=== PATIENT | female | born 1930 | race Caucasian/White ===

== ENCOUNTER 2016-09-09 17:41 | Inpatient (IN) | payer MEDICARE ==
[~2016-09-09] VITALS: Ht 147.3 cm; Wt 40.1 kg
[2016-09-09] VITALS (7 sets, daily range): BP systolic 91–154; BP diastolic 51–82; PULSE 105–112; RESP 18–22; TEMP 98–99.7; O2SAT 88–100
[~2016-09-09 17:41] MED LIST: ALBU17I INH; ASAC800T PO; AZAT50 PO; COZA50TA PO; CYAN1000P IM; DICY20TA10 PO; DONE5TAB14 PO; ESCI5TAB PO; FLUT1SPR9; FURO20 PO; LORA-392 PO; METO25 PO; NAME5TAB2 PO; NYST100024 TOP; POTA20IN3 PO; SPIRCAP INH
[2016-09-09] MEDS ORDERED: methylPREDNISolone SOD SUCC 125 MG/2 ML VIAL IVP ONE (18:15)
[2016-09-09] MEDS ORDERED: SODIUM CHLORIDE 0.9% FLUSH 5 ML FLUSH IVF PRN (18:15)
[2016-09-09] MEDS: RESP: ALBUTEROL 2.5 MG/IPRATROPIUM 0.5 MG NEB (SCH) INH ×2 (18:20→18:21)
[2016-09-09] MEDS ORDERED: FURO1TAB62 PO ×2 (18:37)
[2016-09-09] MEDS ORDERED: FLUT1INH INH (18:37)
[2016-09-09] MEDS ORDERED: CYAN1000P SQ (18:37)
[2016-09-09] MEDS ORDERED: METO50TA PO (18:37)
[2016-09-09] MEDS ORDERED: ARIC5TAB PO (18:37)
[2016-09-09] MEDS ORDERED: ASAC800T PO (18:37)
[2016-09-09] MEDS ORDERED: IMUR50TA PO (18:37)
[2016-09-09] MEDS ORDERED: LORA-373 PO (18:37)
[2016-09-09] MEDS ORDERED: POTA-163 PO (18:37)
[2016-09-09] MEDS ORDERED: LOSA100T PO (18:37)
[2016-09-09] MEDS ORDERED: LEXA5TAB PO (18:37)
[2016-09-09] MEDS ORDERED: NAME10TA PO (18:37)
[2016-09-09] MEDS ORDERED: AZITHROMYCIN INJ 500 MG in SODIUM CHLOR 0.9% 250 ML INJ 250 ML IV ONE (18:45)
[2016-09-09] MEDS ORDERED: cefTRIAXone INJ 1,000 MG in SODIUM CHLORIDE 0.9% INJ 100 ML IV ONE (18:45)
--- NOTE | 2016-09-09 18:50 | PD ---
HPI Chief Complaint: Respiratory Symptoms Time Seen by Provider: 18:02 Travel History International Travel<30 days: No Contact w/Intl Traveler<30days: No Traveled to known affect area: No History of Present Illness HPI This is an 86-year-old female with a history of CHF and COPD who presents to the emergency department with increasing shortness of breath and congestion that 's been going on for several days. Her daughter has noted that she's been having more noisy respirations and when she went over the house today she found green sputum pooled by her mouth. She says that her caregiver has noted she's been more weak over the past 2 days. She has had a fever to 100. She doesn't a history of COPD but she's not been taking any nebulizers. She has a history of CHF and takes Lasix. The daughter says she takes 20 in the morning and 10 at night. The patient is cared for mostly by caregivers and also by family that help out and check on her. She is able to ambulate with assistance. PFSH Past Medical History Hx Anticoagulant Therapy: No Arthritis: Yes Cancer: Yes (SKIN) Cardiovascular Problems: Yes (htn on meds) Chemotherapy: No Diabetes: No Diminished Hearing: Yes ([place]) Gastrointestinal Disorders: Yes (CROHN'S DISEASE) Hypertension: Yes Musculoskeletal: Yes (OSTEOPOROSIS) Respiratory: Yes (copd) ?: Not Menopausal: Yes Past Surgical History Hysterectomy: No Social History Alcohol Use: No Tobacco Use: No Substance Use: No Allergies-Medications (Allergen,Severity, Reaction): Coded Allergies: Sulfa (Verified Allergy, Unknown, Rash, 09/09/16) Reported Meds & Prescriptions Reported Meds & Active Scripts Active Reported Breo Ellipta Inh (Fluticasone/Vilanterol) 100-25 Mcg/Act Inh 1 Puff INH DAILY Use daily at the same time. Asacol HD (Mesalamine) 800 Mg Tab 800 Mg PO TID Swallow whole. Take on an empty stomach. Potassium Chloride ER (Potassium Chloride) 20 Meq Tab 20 Meq PO EVERY OTHER DAY Losartan (Losartan Potassium) 100 Mg Tab 100 Mg PO DAILY Metoprolol Tartrate 50 Mg Tab 50 Mg PO BID Lorazepam 0.5 Mg Tab 0.25 Mg PO DAILY PRN Lasix (Furosemide) 20 Mg Tab 20 Mg PO DAILY Lasix (Furosemide) 20 Mg Tab 10 Mg PO HS Lexapro (Escitalopram Oxalate) 5 Mg Tab 5 Mg PO DAILY Namenda (Memantine) 10 Mg Tab 10 Mg PO DAILY Aricept (Donepezil) 5 Mg Tab 5 Mg PO HS Cyanocobalamin Inj (Cyanocobalamin) 1,000 Mcg/Ml Inj 1,000 Mcg SQ Q30D Imuran (Azathioprine) 50 Mg Tab 50 Mg PO DAILY Hazardous agent: use appropriate precautions for handling and disposal. Review of Systems ROS Limitations: Poor Historian Physical Exam Narrative GENERAL: Frail elderly female with severe kyphosis SKIN: Some skin breakdown along the buttocks with a 1 cm sacral decubitus ulcer which is 0.25 cm deep HEAD: Atraumatic. Normocephalic. EYES: Pupils equal and round. No injection or drainage. ENT: Dry mucous membranes. NECK: Trachea midline. CARDIOVASCULAR: Regular rate and rhythm. No murmur appreciated. 2+ bilateral pitting edema. RESPIRATORY: Coarse breath sounds bilaterally.. GASTROINTESTINAL: Abdomen soft, non-tender, nondistended. MUSCULOSKELETAL: No obvious deformities. NEUROLOGICAL: Oriented to person and place. Somewhat confused.. No obvious cranial nerve deficits. Moving all extremities. Data Data Last Documented VS Vital Signs Date Time Temp Pulse Resp B/P Pulse Ox O2 Delivery O2 Flow Rate FiO2 09/09/16 18:26 88 Room Air 09/09/16 18:26 2 09/09/16 17:55 99.7 105 18 154/82 Orders Complete Blood Count With Diff (09/09/16 18:15) Comprehensive Metabolic Panel (09/09/16 18:15) B-Type Natriuretic Peptide (09/09/16 18:15) Act Partial Throm Time (Ptt) (09/09/16 18:15) Prothrombin Time / Inr (Pt) (09/09/16 18:15) Troponin I (09/09/16 18:15) Influenzae A/B Antigen (09/09/16 18:15) Iv Access Insert/Monitor (09/09/16 18:15) Ecg Monitoring (09/09/16 18:15) Oximetry (09/09/16 18:15) Oxygen Administration (09/09/16 18:15) Chest, Single Ap (09/09/16 18:15) Sodium Chloride 0.9% Flush (Ns Flush) (09/09/16 18:15) Methylprednisolone So Succ Inj (Solumedr (09/09/16 18:15) Albuterol-Ipratropium Neb (Duoneb Neb) (09/09/16 18:15) Blood Culture (09/09/16 18:41) Lactic Acid (09/09/16 18:41) Ceftriaxone Inj (Rocephin Inj) (09/09/16 18:45) Azithromycin Inj (Zithromax Inj) (09/09/16 18:45) MDM Medical Decision Making Medical Screen Exam Complete: Yes Emergency Medical Condition: Yes Interpretation(s) Low-grade fever, tachycardia, hypoxia Differential Diagnosis Pneumonia, viral syndrome, pulmonary embolism, congestive heart failure Narrative Course This is an 86-year-old female who presents to the emergency department with shortness of breath, fever and congestion. Here she has a low-grade fever and she was found to be hypoxic. She is placed on a monitor and an IV was established. She was given methylprednisilone as well as serial bronchodilator treatments. Labs were obtained. She does appear volume up and will likely require some Lasix. Her chest x-ray is difficult to interpret given her body habitus. I did cover the patient with ceftriaxone and azithromycin empirically and obtained blood cultures. Patient will be dispositioned by oncoming provider but she certainly requires admission. Jacinta Wayne MD Sep 09, 2016 18:50
[2016-09-09 18:57] LABS: AUTOMATED NEUTROPHIL # 12.8 TH/MM3 (1.8-7.7); BASOPHIL # 0.1 TH/MM3 (0-0.2); BASOPHIL % 0.5 % (0.0-2.0); EOSINOPHIL % 0.1 % (0.0-4.0); HEMO FLAGS DIFF FINAL; LYMPHOCYTE # 0.1 TH/MM3 (1.0-4.8); MEAN CELL VOLUME 89.1 FL (80.0-100.0); MEAN CORPUSCULAR HEMOGLOBIN 28.9 PG (27.0-34.0); MEAN CORPUSCULAR HGB CONC 32.5 % (32.0-36.0); MONO % 2.1 % (0.0-8.0); NEUT % 96.3 % (16.0-70.0); PLATELET COUNT 402 TH/MM3 (150-450); RED BLOOD COUNT 3.36 MIL/MM3 (4.00-5.30); RED CELL DISTRIBUTION WIDTH 16.2 % (11.6-17.2); WHITE BLOOD COUNT 13.3 TH/MM3 (4.0-11.0)
[2016-09-09 19:48] LABS: CHLORIDE 103 MEQ/L (98-107); POTASSIUM 4.1 MEQ/L (3.5-5.1); SODIUM (NA) 139 MEQ/L (136-145)
[2016-09-09 19:57] LABS: PROTHROMBIN TIME - PATIENT 10.8 SEC (9.8-11.6)
[2016-09-09 19:57] LABS: ALT (GPT) 12 U/L (10-53); ANION GAP 12 MEQ/L (5-15); AST (GOT) 19 U/L (15-37); BICARBONATE 24.2 MEQ/L (21.0-32.0); BLOOD UREA NITROGEN 21 MG/DL (7-18); GLOMERULAR FILTRATION RATE 58 ML/MIN (>89)
[2016-09-09 19:58] LABS: TOTAL BILIRUBIN ADULT 0.3 MG/DL (0.2-1.0)
[2016-09-09 20:00] LABS: ALKALINE PHOSPHATASE 87 U/L (45-117)
--- NOTE | 2016-09-09 20:07 | RADHPO ---
EXAM DATE/TIME: 09/09/2016 18:30 [facility] COMPARISON: No previous studies available for comparison. INDICATIONS : Short of breath. MEDICAL HISTORY : Congestive heart failure. Chronic obstructive pulmonary disease. SURGICAL HISTORY : None. ENCOUNTER: Initial ACUITY: 1 day PAIN SCORE: Non-responsive. LOCATION: Bilateral chest FINDINGS: A single view of the chest demonstrates mild basilar opacity, possibly atelectasis and scarring. Tigist ent is kyphotic. Heart is mildly enlarged. No significant effusion. CONCLUSION: 1. Basilar and dependent opacity, probably atelectasis. No significant effusion. No pneumothorax. Jerald Lozada MD on September 09, 2016 at 20:03 Board Certified Radiologist. This report was verified electronically.
[2016-09-09 21:38] LABS: BLOOD GAS CARBOXYHEMOGLOBIN 1.2 % (0-4); BLOOD GAS HCO3 23 mmol/L (22-26); BLOOD GAS METHEMOGLOBIN 2.1 % (0-2); BLOOD GAS O2 HGB SATURATION 86 % (90-100); BLOOD GAS OXYGEN CONTENT 15.3 Vol % (12.0-20.0); BLOOD GAS PCO2 34 mmHG (38-42); BLOOD GAS PO2 62 mmHG (61-120); BLOOD GAS TOTAL HGB 12.6 G/DL (12.0-16.0); TEMP CORR TO 98.6
[2016-09-09 21:39] LABS: CRITICAL VALUE YES; DRAW SITE RT RADIAL; FIO2 21 %; NUMBER OF ARTERIAL PUNCTURES 1; OXYGEN DEVICE ROOM AIR; STAT YES; ULNAR PULSE PRESENT
--- NOTE | 2016-09-09 21:48 | PD ---
Physical Exam Time Seen by Provider: 21:[address] Wayne with this patient with me to admit. She is hypoxic. Data Data Last Documented VS Vital Signs Date Time Temp Pulse Resp B/P Pulse Ox O2 Delivery O2 Flow Rate FiO2 09/09/16 21:37 96 Nasal Cannula 2 09/09/16 21:37 112 20 119/64 09/09/16 17:55 99.7 Orders Complete Blood Count With Diff (09/09/16 18:15) Comprehensive Metabolic Panel (09/09/16 18:15) B-Type Natriuretic Peptide (09/09/16 18:15) Act Partial Throm Time (Ptt) (09/09/16 18:15) Prothrombin Time / Inr (Pt) (09/09/16 18:15) Troponin I (09/09/16 18:15) Influenzae A/B Antigen (09/09/16 18:15) Iv Access Insert/Monitor (09/09/16 18:15) Ecg Monitoring (09/09/16 18:15) Oximetry (09/09/16 18:15) Oxygen Administration (09/09/16 18:15) Chest, Single Ap (09/09/16 18:15) Sodium Chloride 0.9% Flush (Ns Flush) (09/09/16 18:15) Methylprednisolone So Succ Inj (Solumedr (09/09/16 18:15) Albuterol-Ipratropium Neb (Duoneb Neb) (09/09/16 18:15) Blood Culture (09/09/16 18:41) Lactic Acid (09/09/16 18:41) Ceftriaxone Inj (Rocephin Inj) (09/09/16 18:45) Azithromycin Inj (Zithromax Inj) (09/09/16 18:45) Arterial Blood Gas (Abg) (09/09/16 21:19) Labs Laboratory Tests Test 09/09/16 09/09/16 09/09/16 18:44 19:20 21:30 White Blood Count 13.3 TH/MM3 Red Blood Count 3.36 MIL/MM3 Hemoglobin 9.7 GM/DL Hematocrit 30.0 % Mean Corpuscular Volume 89.1 FL Mean Corpuscular Hemoglobin 28.9 PG Mean Corpuscular Hemoglobin 32.5 % Concent Red Cell Distribution Width 16.2 % Platelet Count 402 TH/MM3 Mean Platelet Volume 6.9 FL Neutrophils (%) (Auto) 96.3 % Lymphocytes (%) (Auto) 1.0 % Monocytes (%) (Auto) 2.1 % Eosinophils (%) (Auto) 0.1 % Basophils (%) (Auto) 0.5 % Neutrophils # (Auto) 12.8 TH/MM3 Lymphocytes # (Auto) 0.1 TH/MM3 Monocytes # (Auto) 0.3 TH/MM3 Eosinophils # (Auto) 0.0 TH/MM3 Basophils # (Auto) 0.1 TH/MM3 CBC Comment DIFF FINAL Differential Comment Prothrombin Time 10.8 SEC Prothromb Time International 1.0 RATIO Ratio Activated Partial 23.0 SEC Thromboplast Time B-Type Natriuretic Peptide 258 PG/ML Sodium Level 139 MEQ/L Potassium Level 4.1 MEQ/L Chloride Level 103 MEQ/L Carbon Dioxide Level 24.2 MEQ/L Anion Gap 12 MEQ/L Blood Urea Nitrogen 21 MG/DL Creatinine 0.92 MG/DL Estimat Glomerular Filtration 58 ML/MIN Rate Random Glucose 167 MG/DL Lactic Acid Level 1.8 mmol/L Calcium Level 8.4 MG/DL Total Bilirubin 0.3 MG/DL Aspartate Amino Transf 19 U/L (AST/SGOT) Alanine Aminotransferase 12 U/L (ALT/SGPT) Alkaline Phosphatase 87 U/L Troponin I LESS THAN 0.02 NG/ML Total Protein 7.0 GM/DL Albumin 2.4 GM/DL Blood Gas Puncture Site RT RADIAL Blood Gas Patient Temperature 98.6 Blood Gas HCO3 23 mmol/L Blood Gas Base Excess -1.0 mmol/L Blood Gas Oxygen Saturation 86 % Arterial Blood pH 7.44 Arterial Blood Partial 34 mmHG Pressure CO2 Arterial Blood Partial 62 mmHG Pressure O2 Arterial Blood Oxygen Content 15.3 Vol % Arterial Blood 1.2 % Carboxyhemoglobin Arterial Blood Methemoglobin 2.1 % Blood Gas Hemoglobin 12.6 G/DL Oxygen Delivery Device ROOM AIR Blood Gas Inspired Oxygen 21 % [facility] Medical Record Reviewed: Yes Supervised Visit with RODNEY: Yes Interpretation(s) The chest x-ray shows basilar and dependent opacity which the radiologist thought was atelectasis. There was no pneumothorax or effusion present. The blood gases show pH 7.44, CO2 34, PO2 62 with O2 sat 86%. The CBC shows white count 13,300 with 93% neutrophils. The complete metabolic profile shows a BUN of 21, GFR 58, glucose 167 and albumin 2.4. The cardiac enzymes are normal. The BNP is 258. The lactic acid is 1.8. Differential Diagnosis Pneumonia, bronchitis, hypoxemia, pneumothoraxunlikely, pulmonary embolus unlikely, COPD with acute exacerbation, congestive heart failure Narrative Course The pneumonia is not identified on x-ray but the x-ray is very poor because of her kyphosis. She does have a fever and she does have hypoxemia. She also has a shift to the left with 96% neutrophils. A bacterial infection and strongly suggested. Impression: Bronchitis with hypoxemia and congestive heart failure. Plan: The patient will be admitted to Dr. Rjei Jordan. Physician Communication Physician Communication I discussed the patient with Dr. Reji Jordan and Dr. Wayne. Admitting Information Admitting Physician Requests: it Ger Silver MD Sep 09, 2016 21:48
[2016-09-09] MEDS ORDERED: SODIUM CHLORIDE 0.9% FLUSH 5 ML FLUSH IV FLUSH PRN (22:15)
[2016-09-09] MEDS ORDERED: guaiFENesin/DEXTROMETHORPHAN 200 MG/20 MG/10 ML CUP PO PRN (22:15)
[2016-09-09] MEDS ORDERED: DOCUSATE SODIUM 100 MG CAP PO PRN (22:15)
[2016-09-09] MEDS ORDERED: ONDANSETRON HCL 4 MG/2 ML VIAL IV PRN (22:15)
[2016-09-09] MEDS ORDERED: RESP: ALBUTEROL 2.5 MG/IPRATROPIUM 0.5 MG NEB (PRN) NEB (22:15)
[2016-09-09] MEDS: ACETAMINOPHEN 325 MG TAB PO PRN (23:35)
[2016-09-09] MEDS: DONEPEZIL HCL 5 MG TAB PO SCH (23:58)
[2016-09-10] VITALS (9 sets, daily range): BP systolic 90–154; BP diastolic 47–76; PULSE 80–104; RESP 16–18; TEMP 97.3–99; O2SAT 95–98
[2016-09-10 06:30] LABS: POTASSIUM 4.7 MEQ/L (3.5-5.1)
[2016-09-10 06:34] LABS: BICARBONATE 24.5 MEQ/L (21.0-32.0)
[2016-09-10] MEDS: RESP: ALBUTEROL 2.5 MG/IPRATROPIUM 0.5 MG NEB (SCH) INH ×3 (07:17→19:50)
[2016-09-10 08:24] LABS: AUTOMATED NEUTROPHIL # 16.3 TH/MM3 (1.8-7.7); BASOPHIL % 0.1 % (0.0-2.0); HEMATOCRIT 30.4 % (35.0-46.0); LYMPH % 1.6 % (9.0-44.0); LYMPHOCYTE # 0.3 TH/MM3 (1.0-4.8); MEAN CELL VOLUME 90.5 FL (80.0-100.0); MEAN CORPUSCULAR HEMOGLOBIN 29.4 PG (27.0-34.0); MEAN CORPUSCULAR HGB CONC 32.4 % (32.0-36.0); MONO % 2.4 % (0.0-8.0); NEUT % 95.9 % (16.0-70.0); PLATELET COUNT 391 TH/MM3 (150-450); RED BLOOD COUNT 3.36 MIL/MM3 (4.00-5.30); RED CELL DISTRIBUTION WIDTH 15.9 % (11.6-17.2)
[2016-09-10 08:28] LABS: HEMO FLAGS DIFF FINAL
[2016-09-10] MEDS: azaTHIOprine 50 MG TAB PO SCH (09:13)
[2016-09-10] MEDS: METOPROLOL TARTRATE 50 MG TAB PO SCH ×2 (09:13→21:20)
[2016-09-10] MEDS: FLUTICASONE 100 MCG/VILANTEROL 25 MCG INHALER INH SCH (09:13)
[2016-09-10] MEDS: ESCITALOPRAM OXALATE 10 MG TAB PO SCH (09:14)
[2016-09-10] MEDS: LOSARTAN 50 MG TAB PO SCH (09:14)
[2016-09-10] MEDS: MEMANTINE HCL 10 MG TAB PO SCH (09:14)
[2016-09-10] MEDS: FUROSEMIDE 20 MG TAB PO SCH (09:14)
[2016-09-10] MEDS: SODIUM CHLORIDE 0.9% FLUSH 5 ML FLUSH IV FLUSH SCH ×2 (09:14→21:03)
[2016-09-10] MEDS: MESALAMINE HD 800 MG DELAYED RELEASE TAB PO SCH ×3 (09:14→18:00)
[2016-09-10] MEDS: methylPREDNISolone SOD SUCC 40 MG/1 ML VIAL IV SCH ×2 (09:15→21:00)
--- NOTE | 2016-09-10 12:16 | MH ---
cc: SUSSY PALOMARES M.D. DATE OF ADMISSION: 09/09/2016 ADMITTING DIAGNOSIS Bronchitis, hypoxia. HISTORY OF PRESENT ILLNESS The history is obtained mainly from the EHR records and the patient's daughter. Ms. Gleason is an 86-year-old female who was brought to the emergency room by her daughter as she had noticed that she had started to decline in the last two days prior to admission. She states that she had a decrease in appetite, was congested. When she arrived home that day she saw that she had six green sputum that she had brought up as well as a fever. She was not confused as she is typically when she gets sick. The daughter also noticed that she had a little bit more pedal edema than usual. All this prompted the daughter to bring the patient to the emergency room for evaluation. The patient does have a history of COPD and is normally on inhalers at home. Apparently according to the daughter she had been fighting an upper respiratory tract infection for the last week or so. Normally they have had issues with her appetite and her weight but they have been able to maintain her weight at approximately 80 pounds. However, she did have a decrease in appetite when she became ill. PAST MEDICAL HISTORY 1. Very hard of hearing. 2. Dementia. 3. Crohn's disease and will have a flare-up with diarrhea approximately once a week. 4. Osteoporosis and significant kyphosis. 5. History of iron deficiency anemia and B12 deficiency. 6. COPD. 7. She carries a diagnosis of congestive heart failure with an echo done last year with an ejection fraction of 35-40% with mild to moderate MR. 8. Anxiety. 9. Hypertension. 10.She has been incontinent of urine and stool. 11.History of lumbar compression fractures. 12.Depression. PAST SURGICAL HISTORY 1. Kyphoplasty last year. 2. Cataract surgeries. ALLERGIES SULFA. MEDICATIONS 1. Asacol HD 800 mg three times a day. 2. Imuran 50 mg daily. 3. Furosemide 20 mg in the morning, 10 mg in the evening. 4. B12 injections monthly. 5. Aricept 5 mg daily. 6. Lexapro 5 mg daily. 7. Recently started on Breo Ellipta in substitution for Spiriva. 8. Lorazepam 0.25 mg daily as needed for anxiety. 9. Namenda 5 mg daily. 10.According to the EHR chart she is on Reglan 10 mg twice a day but that does not appear on her home medications at this point. 11.Metoprolol 50 mg twice a day. 12.Potassium chloride 10 mEq every other day. 13.Ventolin inhaler. HABITS She does not smoke or consume alcohol. SOCIAL HISTORY She is currently living in a town home. She has caretakers from 8:00 a.m. to 8:00 p.m. as well as on the weekends. Her daughter also sees her on a regular basis and oversees her care. According to the family she is ambulatory and gets up with a walker. REVIEW OF SYSTEMS Apparently they have had issues with her weight but they have been able to maintain her weight at approximately 80 pounds according to the daughter and she recently has had a good appetite. She has had the cough and congestion. Apparently there has been no complaints of chest pain or abdominal pain. As stated she does have episodes of diarrhea approximately once a week. She has had issues in the past with decubitus that will heal and open intermittently. PHYSICAL EXAMINATION VITAL SIGNS: On physical exam this morning her temperature is 98.1, pulse 100, respirations 18, blood pressure 154/76, pulse ox 97% on two liters. GENERAL: She is lying in the bed on her left side in a semi- position. When I first saw her she was not wearing her hearing aids and would not answer my questions but would make her needs known, requesting water. We put in her hearing aids and she was a little bit more interactive. HEENT: She is normocephalic and traumatic. EOM intact. She has dry oral mucosa. She has a little bit of a drool. NECK: Her neck is supple. I was unable to hear any bruits. MUSCULOSKELETAL: She has marked kyphosis. LUNGS: Her lung sounds are diminished but I really hear no rhonchi, rales or wheezes. HEART: Slightly tachycardic. I do not hear a significant murmur. ABDOMEN: Positive bowel sounds. It does not appear to be tender. EXTREMITIES: Her extremities are very thin with significantly diminished muscle mass. She does have some pedal edema. LABORATORY DATA Lab work that was done when she was admitted showed a white count of 13.3, hemoglobin of 9.7, hematocrit of 30, platelet count of 402. MPV was 6.9. Neutrophils were 96.3. Sodium was 139, potassium 4.1, BUN 21 with a creatinine of 0.92, random glucose 167. LFTs were normal. Troponin was less than 0.02. BNP was 258. Her total protein was 7 with an albumin of 2.4. INR was 1 with a PTT of 23. Blood gases on room air showed a pH of 7.44, PCO2 34, PO2 62, saturation 86. She was negative for flu and B antigen for nasal washing. IMAGING DATA The chest x-ray was been read as basilar independent opacity probably atelectasis. It was a difficult imaging test secondary to her kyphosis. ASSESSMENT AND PLAN 1. An 86-year-old female presenting to the emergency room with cough and congestion, fever, increased sputum present and elevated white count. At this time she has been admitted for bronchitis and hypoxia. Her chest x-ray is very difficult to interpret. It is not clear that she actually has pneumonia on the imaging. She has been placed on antibiotics and these will continue. She is on azithromycin and Rocephin. Will try to improve pulmonary toilet by adding incentive spirometry having her up in a chair as much as possible, continuing duo nebs. 2. Congestive heart failure. She does not appear to be in any volume overload at this time she is requesting water from the staff. She is not having any fever. I will just hold her diuretics for one day and let her hydrate on her own. 3. For her Crohn's disease she will continue on her Asacol and Imuran. She does have anemia on her blood work. This is new compared to blood work that I could see from last year. The daughter denies noticing any black or tarry stools or significant change in her bowel movements. Will check her B12 and iron levels for now. 4. Hai depression and anxiety will continue her Lexapro and Ativan as needed, also her Namenda and her Aricept for her dementia. 5. Will order PT for strengthening. 6. Further recommendations as the case develops. Sussy Palomares MD CSJessie/BT /11:11 AM 11:42 AM
[2016-09-10 12:43] LABS: REVIEW FLAG FINAL
[2016-09-10] MEDS: ACETAMINOPHEN 325 MG TAB PO PRN (13:03)
[2016-09-10 13:13] LABS: TRANSFERRIN IRON PROFILE 137 MG/DL (200-360)
[2016-09-10] MEDS: cefTRIAXone INJ 1,000 MG in SODIUM CHLORIDE 0.9% INJ 100 ML IV SCH (18:27)
[2016-09-10] MEDS ORDERED: FUROSEMIDE 20 MG TAB PO SCH (21:00)
[2016-09-10] MEDS: AZITHROMYCIN INJ 500 MG in SODIUM CHLOR 0.9% 250 ML INJ 250 ML IV SCH (21:03)
[2016-09-10] MEDS: DONEPEZIL HCL 5 MG TAB PO SCH (21:20)
[2016-09-11] VITALS (9 sets, daily range): BP systolic 90–151; BP diastolic 50–72; PULSE 74–116; RESP 16–20; TEMP 97.8–98.2; O2SAT 93–98
[2016-09-11 06:42] LABS: AUTOMATED NEUTROPHIL # 13.9 TH/MM3 (1.8-7.7); BASOPHIL % 0.2 % (0.0-2.0); EOSINOPHIL % 0.1 % (0.0-4.0); HEMATOCRIT 27.7 % (35.0-46.0); LYMPHOCYTE # 0.4 TH/MM3 (1.0-4.8); MEAN CELL VOLUME 91.7 FL (80.0-100.0); MEAN CORPUSCULAR HEMOGLOBIN 28.9 PG (27.0-34.0); MEAN CORPUSCULAR HGB CONC 31.5 % (32.0-36.0); NEUT % 94.7 % (16.0-70.0); PLATELET COUNT 335 TH/MM3 (150-450); RED BLOOD COUNT 3.02 MIL/MM3 (4.00-5.30); RED CELL DISTRIBUTION WIDTH 15.9 % (11.6-17.2); WHITE BLOOD COUNT 14.6 TH/MM3 (4.0-11.0)
[2016-09-11 06:50] LABS: HEMO FLAGS AUTO DIFF
[2016-09-11 07:14] LABS: POTASSIUM 4.3 MEQ/L (3.5-5.1)
[2016-09-11 07:23] LABS: BICARBONATE 25.9 MEQ/L (21.0-32.0)
[2016-09-11] MEDS: methylPREDNISolone SOD SUCC 40 MG/1 ML VIAL IV SCH ×2 (08:00→20:19)
[2016-09-11 08:03] LABS: SCAN/DIFF AUTO DIFF CONFIRMED
[2016-09-11] MEDS: LOSARTAN 50 MG TAB PO SCH (09:00)
[2016-09-11] MEDS: FUROSEMIDE 20 MG TAB PO SCH (09:00)
[2016-09-11] MEDS: azaTHIOprine 50 MG TAB PO SCH (09:00)
[2016-09-11] MEDS: METOPROLOL TARTRATE 50 MG TAB PO SCH ×2 (09:00→21:00)
[2016-09-11] MEDS: ESCITALOPRAM OXALATE 10 MG TAB PO SCH (09:00)
[2016-09-11] MEDS: FLUTICASONE 100 MCG/VILANTEROL 25 MCG INHALER INH SCH (09:00)
[2016-09-11] MEDS: MEMANTINE HCL 10 MG TAB PO SCH (09:00)
[2016-09-11] MEDS ORDERED: POTASSIUM CHLORIDE 20 MEQ CONTROLLED RELEASE TAB PO SCH (09:00)
[2016-09-11] MEDS: SODIUM CHLORIDE 0.9% FLUSH 5 ML FLUSH IV FLUSH SCH ×2 (09:00→20:19)
--- NOTE | 2016-09-11 10:34 | RADHPO ---
EXAM DATE/TIME: 09/11/2016 10:00 [facility] COMPARISON: CHEST SINGLE AP, November 23, 2015, 10:00. CHEST PA & LAT, May 09, 2015, 21:01. CHEST SINGLE AP, F ebruary 2016, 18:30. INDICATIONS : Congestion MEDICAL HISTORY : Crohn's disease. Carcinoma, squamous cell. Hypertension. SURGICAL HISTORY : Kyphoplasty. ENCOUNTER: Subsequent ACUITY: 3 days PAIN SCORE: 0/10 LOCATION: chest FINDINGS: A single AP semierect view of the chest obtained and demonstrates mild to moderate cardiomegaly. Axia l opacity remains in both lung bases. The patient is kyphotic. There is no distinct effusion. Linear atelectasis is now noted in the right perihilar region. There is retrocardiac hiatal hernia. Atherosc lerotic changes are present the aorta. There are multiple overlying electrocardiogram leads. There is a gastrostomy tube in the stomach which is projected over the hernia. CONCLUSION: 1. Linear atelectasis now noted in the right perihilar region. Patchy bibasal opacities remain. Rito Brunner MD on September 11, 2016 at 10:30 Board Certified Radiologist. This report was verified electronically.
--- NOTE | 2016-09-11 10:44 | HHI.PR ---
Subjective Remarks Trouble swallowing today, no abdominal pain aide reports stools were black yesterday Objective Vitals Vital Signs Date Time Temp Pulse Resp B/P Pulse Ox O2 Delivery O2 Flow Rate FiO2 09/11/16 08:04 97.8 74 16 151/72 96 09/11/16 08:00 Nasal Cannula 2.00 09/11/16 08:00 88 09/11/16 04:00 98.1 92 16 128/64 97 09/11/16 00:00 98.0 94 16 136/72 96 09/10/16 21:00 83 09/10/16 20:30 97 Nasal Cannula 2.00 09/10/16 20:00 98.2 80 16 106/56 97 09/10/16 19:51 95 Nasal Cannula 2.00 09/10/16 16:00 99.0 80 17 94/58 95 09/10/16 14:05 18 09/10/16 12:29 97.3 87 18 136/73 96 09/10/16 11:35 Nasal Cannula 2.00 09/10/16 09/10/16 09/11/16 15:00 23:00 07:00 Intake Total 450 ml 460 ml 500 ml Balance 450 ml 460 ml 500 ml Intake Oral 450 ml 460 ml 500 ml # Voids 2 2 # Bowel Movements 2 0 Result Diagram: 09/11/1651909/11/16 05 Other Results Laboratory Tests Test 09/09/16 09/09/16 09/09/16 09/10/16 18:44 19:20 21:30 06:00 White Blood Count 13.3 TH/MM3 (4.0-11.0) Red Blood Count 3.36 MIL/MM3 (4.00-5.30) Hemoglobin 9.7 GM/DL (11.6-15.3) Hematocrit 30.0 % (35.0-46.0) Mean Platelet Volume 6.9 FL (7.0-11.0) Neutrophils (%) (Auto) 96.3 % (16.0-70.0) Lymphocytes (%) (Auto) 1.0 % (9.0-44.0) Neutrophils # (Auto) 12.8 TH/MM3 (1.8-7.7) Lymphocytes # (Auto) 0.1 TH/MM3 (1.0-4.8) Activated Partial 23.0 SEC Thromboplast Time (24.3-30.1) B-Type Natriuretic Peptide 258 PG/ML (0-100) Blood Urea Nitrogen 21 MG/DL (7-18) 24 MG/DL (7-18) Estimat Glomerular Filtration 58 ML/MIN (>89) 57 ML/MIN (>89) Rate Random Glucose 167 MG/DL 143 MG/DL (74-106) (74-106) Calcium Level 8.4 MG/DL (8.5-10.1) Troponin I LESS THAN 0.02 NG/ML (0.02-0.05) Albumin 2.4 GM/DL (3.4-5.0) Blood Gas Oxygen Saturation 86 % (90-100) Arterial Blood pH 7.44 (7.380-7.420) Arterial Blood Partial 34 mmHG (38-42) Pressure CO2 Arterial Blood Methemoglobin 2.1 % (0-2) Iron Level 21 MCG/DL (50-170) Total Iron Binding Capacity 192 MCG/DL (250-450) Percent Iron Saturation 10.9 % (20-50) Vitamin B12 Level GREATER THAN 2000 PG/ML (193-986) Folate GREATER THAN 20.0 NG/ML (3.1-17.5) Test 09/10/16 09/11/16 08:07 05:20 White Blood Count 17.0 TH/MM3 14.6 TH/MM3 (4.0-11.0) (4.0-11.0) Red Blood Count 3.36 MIL/MM3 3.02 MIL/MM3 (4.00-5.30) (4.00-5.30) Hemoglobin 9.8 GM/DL 8.7 GM/DL (11.6-15.3) (11.6-15.3) Hematocrit 30.4 % 27.7 % (35.0-46.0) (35.0-46.0) Mean Platelet Volume 6.8 FL (7.0-11.0) Neutrophils (%) (Auto) 95.9 % 94.7 % (16.0-70.0) (16.0-70.0) Lymphocytes (%) (Auto) 1.6 % 3.0 % (9.0-44.0) (9.0-44.0) Neutrophils # (Auto) 16.3 TH/MM3 13.9 TH/MM3 (1.8-7.7) (1.8-7.7) Lymphocytes # (Auto) 0.3 TH/MM3 0.4 TH/MM3 (1.0-4.8) (1.0-4.8) Mean Corpuscular Hemoglobin 31.5 % Concent (32.0-36.0) Blood Urea Nitrogen 27 MG/DL (7-18) Estimat Glomerular Filtration 75 ML/MIN (>89) Rate Random Glucose 111 MG/DL (74-106) Calcium Level 8.0 MG/DL (8.5-10.1) Imaging Last Impressions Chest X-Ray 09/09/16 1815 Signed Impressions: Service Date/Time: Friday, September 09, 2016 18:30 - CONCLUSION: 1. Basilar and dependent opacity, probably atelectasis. No significant effusion. No pneumothorax. Jerald Lozada MD Objective Remarks sitting in chair sounds congested , swallow is weak lung sounds diminished heart rrr not tachycardic pedal edema, minimal tibial edema slight tremor A/P Problem List: (1) Bronchitis Status: Acute Plan: bronchitis with hypoxia on antibiotics, solumedrol and duonebs will repeat chest xray today, swallow today is weak ,concerned about possibility of aspiration. spoke to daughter who told me she has been on low dose reglan for her swallow will resume has tremor at baseline (2) CHF (congestive heart failure) Status: Chronic Plan: on ARB inhibitor furosemide held yesterday will resume (3) Dementia Status: Chronic Plan: stable on current regimen (4) Crohns disease Status: Chronic Plan: has been stable per report (5) Anemia Status: Acute Plan: iron deficiency anemia is new since last year, has had in the past, hemmocults sent spoke to daughter, ok to transufuse if continues to drop will consult GI Problem Qualifiers (1) Anemia: Sussy Chávez MD Sep 11, 2016 10:43
[2016-09-11] MEDS: RESP: ALBUTEROL 2.5 MG/IPRATROPIUM 0.5 MG NEB (SCH) INH ×3 (10:49→19:25)
[2016-09-11] MEDS: MESALAMINE HD 800 MG DELAYED RELEASE TAB PO SCH ×3 (12:20→18:30)
[2016-09-11] MEDS: METOCLOPRAMIDE HCL 10 MG TAB PO SCH ×2 (12:20→16:19)
[2016-09-11] MEDS: ACETAMINOPHEN 325 MG TAB PO PRN ×2 (13:11→21:41)
[2016-09-11] MEDS: cefTRIAXone INJ 1,000 MG in SODIUM CHLORIDE 0.9% INJ 100 ML IV SCH (18:30)
[2016-09-11] MEDS: LORazepam 0.5 MG TAB PO PRN (18:39)
[2016-09-11] MEDS: AZITHROMYCIN INJ 500 MG in SODIUM CHLOR 0.9% 250 ML INJ 250 ML IV SCH (20:19)
--- NOTE | 2016-09-11 20:52 | PD.CONS ---
HPI History of Present Illness This is a 86 year old female who is well known to me from prior encounters and office visits patient with known history of Crohn's disease she's had a significant decline over the past year or 2 and I haven't really seen her recently in the office discussions with both her and her daughter have been such that we needed to be mostly supportive rather than aggressive in treating. The patient is somewhat of a poor historian and most my information was obtained from chart review Apparently Ms. Gleason was brought into the emergency room by her daughter when she had noticed further decline in her state the past couple days she had decreased appetite and was apparently congested she also had productive cough and fever and she was confused and is currently being treated for bronchitis [facility] Past Medical History 1. Depression 2. Dementia. 3. Crohn's disease and will have a flare-up with diarrhea approximately once a week. 4. Osteoporosis and significant kyphosis. 5. History of iron deficiency anemia and B12 deficiency. 6. COPD. 7. She carries a diagnosis of congestive heart failure with an echo done last year with an ejection fraction of 35-40% with mild to moderate MR. 8. Anxiety. 9. Hypertension. 10.She has been incontinent of urine and stool. 11.History of lumbar compression fractures. Past Surgical History 1. Kyphoplasty last year. 2. Cataract surgeries. Coded Allergies: Sulfa (Verified Allergy, Unknown, Rash, 09/09/16) Medications 1. Asacol HD 800 mg three times a day. 2. Imuran 50 mg daily. 3. Furosemide 20 mg in the morning, 10 mg in the evening. 4. B12 injections monthly. 5. Aricept 5 mg daily. 6. Lexapro 5 mg daily. 7. Recently started on Breo Ellipta in substitution for Spiriva. 8. Lorazepam 0.25 mg daily as needed for anxiety. 9. Namenda 5 mg daily. 10.Metoprolol 50 mg twice a day. 11.Ventolin inhaler. Family History Noncontributory Social History Negative for alcohol or tobacco Review of Systems ROS Review of systems this is somewhat limited but Patient denies any headache dizziness blurry vision, denies any chest pain shortness of breath cough fever chills, Denies any palpitations or fatigue denies any polyuria dysuria hematuria, denies any numbness tingling or weakness, denies any skin rash pruritus or jaundice, denies any easy bruising or bleeding tendency, denies any recent change in mood GI Exam Vitals I&O Vital Signs Date Time Temp Pulse Resp B/P Pulse Ox O2 Delivery O2 Flow Rate FiO2 09/11/16 16:35 97.8 76 16 132/63 95 09/11/16 14:11 20 09/11/16 12:10 97.9 78 16 129/62 93 09/11/16 10:51 98 Nasal Cannula 2.00 09/11/16 08:04 97.8 74 16 151/72 96 09/11/16 08:00 Nasal Cannula 2.00 09/11/16 08:00 88 09/11/16 04:00 98.1 92 16 128/64 97 09/11/16 00:00 98.0 94 16 136/72 96 09/10/16 21:00 83 I/O 09/10/16 09/10/16 09/10/16 09/11/16 09/11/16 09/11/16 07:00 15:00 23:00 07:00 15:00 23:00 Intake Total 450 ml 460 ml 500 ml 650 ml Balance 450 ml 460 ml 500 ml 650 ml Intake Oral 450 ml 460 ml 500 ml 650 ml # Voids 2 2 2 2 # Bowel Movements 0 2 0 2 Imaging Last 48 hours Impressions Chest X-Ray 09/11/16 0000 Signed Impressions: Service Date/Time: Sunday, September 11, 2016 10:00 - CONCLUSION: 1. Linear atelectasis now noted in the right perihilar region. Patchy bibasal opacities remain. Rito Brunner MD Laboratory Test 09/11/16 05:20 White Blood Count 14.6 TH/MM3 Red Blood Count 3.02 MIL/MM3 Hemoglobin 8.7 GM/DL Hematocrit 27.7 % Mean Corpuscular Volume 91.7 FL Mean Corpuscular Hemoglobin 28.9 PG Mean Corpuscular Hemoglobin 31.5 % Concent Red Cell Distribution Width 15.9 % Platelet Count 335 TH/MM3 Mean Platelet Volume 7.0 FL Neutrophils (%) (Auto) 94.7 % Lymphocytes (%) (Auto) 3.0 % Monocytes (%) (Auto) 2.0 % Eosinophils (%) (Auto) 0.1 % Basophils (%) (Auto) 0.2 % Neutrophils # (Auto) 13.9 TH/MM3 Lymphocytes # (Auto) 0.4 TH/MM3 Monocytes # (Auto) 0.3 TH/MM3 Eosinophils # (Auto) 0.0 TH/MM3 Basophils # (Auto) 0.0 TH/MM3 CBC Comment AUTO DIFF Differential Comment AUTO DIFF CONFIRMED Sodium Level 143 MEQ/L Potassium Level 4.3 MEQ/L Chloride Level 107 MEQ/L Carbon Dioxide Level 25.9 MEQ/L Anion Gap 10 MEQ/L Blood Urea Nitrogen 27 MG/DL Creatinine 0.74 MG/DL Estimat Glomerular Filtration 75 ML/MIN Rate Random Glucose 111 MG/DL Calcium Level 8.0 MG/DL Date/Time Procedure Status Source Growth 09/11/16 10:20 Stool Occult Blood (JULIAN) - Final Complete Stool Stool HEMOCCULT NEGATIVE 09/11/16 09:26 Gram Stain Received Sputum Expectorated Sputum Pending 09/11/16 09:26 Sputum Culture Received Sputum Expectorated Sputum Pending 09/09/16 19:20 Aerobic Blood Culture - Preliminary Resulted Blood Peripheral NO GROWTH IN 2 DAYS 09/09/16 19:20 Anaerobic Blood Culture - Preliminary Resulted Blood Peripheral NO GROWTH IN 2 DAYS 09/09/16 18:47 Influenza Types A,B Antigen (JULIAN) - Final Complete Nasal Washing NEGATIVE FOR FLU A AND B ANTIGEN.... Physical Examination HEENT: Pupils round and reactive to light; normocephalic; atraumatic; no jaundice. Throat is clear. NECK: Neck is supple, no JVD, no lymphadenopathy. CHEST: Chest some rales with deep inspiration. CARDIAC: Regular rate and rhythm with no murmur gallop or rubs. ABDOMEN: Soft, nondistended, nontender; no hepatosplenomegaly; bowel sounds are present in all four quadrants. EXTREMITIES: No clubbing, cyanosis, or edema. SKIN: Normal; no rash; no jaundice. AUTOMATIC MOUNTER: No focal deficits; alert Assessment and Plan Plan 1. Bronchitis being addressed by attending physician 2. Crohn's disease she is currently on her Asacol and Imuran. She does have anemia and there is mention of dark stools but at this point in time there is no active bleeding I doubt that we will pursue any endoscopy at this point with the patient is frail as she is but I will be discussing the case further with her daughter who is very supportive and knowledgeable In the meanwhile continue with PPI and current supportive measures close monitoring transfusion as needed Further recommendations shall depend on her hospital course Eliezer Low MD Sep 11, 2016 20:52
[2016-09-11] MEDS: PANTOPRAZOLE SOD 40 MG DELAYED RELEASE TAB PO SCH (21:42)
[2016-09-11] MEDS: DONEPEZIL HCL 5 MG TAB PO SCH (21:42)
[2016-09-12] VITALS (22 sets, daily range): BP systolic 94–150; BP diastolic 52–91; PULSE 60–180; RESP 7–33; TEMP 96.5–97.8; O2SAT 69–98
[2016-09-12 06:40] LABS: CHLORIDE 108 MEQ/L (98-107); POTASSIUM 4.2 MEQ/L (3.5-5.1); SODIUM (NA) 144 MEQ/L (136-145)
[2016-09-12 06:41] LABS: AUTOMATED NEUTROPHIL # 13.7 TH/MM3 (1.8-7.7); BASOPHIL % 0.1 % (0.0-2.0); EOSINOPHIL % 0.1 % (0.0-4.0); HEMATOCRIT 28.4 % (35.0-46.0); LYMPH % 2.5 % (9.0-44.0); LYMPHOCYTE # 0.4 TH/MM3 (1.0-4.8); MEAN CELL VOLUME 93.5 FL (80.0-100.0); MEAN CORPUSCULAR HEMOGLOBIN 29.9 PG (27.0-34.0); MEAN CORPUSCULAR HGB CONC 31.9 % (32.0-36.0); MONO % 0.8 % (0.0-8.0); NEUT % 96.5 % (16.0-70.0); PLATELET COUNT 314 TH/MM3 (150-450); RED BLOOD COUNT 3.04 MIL/MM3 (4.00-5.30); WHITE BLOOD COUNT 14.2 TH/MM3 (4.0-11.0)
[2016-09-12 06:44] LABS: ANION GAP 6 MEQ/L (5-15); BICARBONATE 29.6 MEQ/L (21.0-32.0); BLOOD UREA NITROGEN 20 MG/DL (7-18)
[2016-09-12] MEDS ORDERED: SODIUM CHLOR 0.9% 250 ML INJ 250 ML IV SCH (06:45)
[2016-09-12 06:47] LABS: GLOMERULAR FILTRATION RATE 97 ML/MIN (>89)
[2016-09-12 06:48] LABS: AST (GOT) 28 U/L (15-37)
[2016-09-12 06:49] LABS: TOTAL BILIRUBIN ADULT 0.1 MG/DL (0.2-1.0)
[2016-09-12 06:50] LABS: ALKALINE PHOSPHATASE 74 U/L (45-117)
[2016-09-12 06:56] LABS: ALT (GPT) 15 U/L (10-53)
[2016-09-12] MEDS ORDERED: DILTIAZEM HCL 25 MG/5 ML VIAL IV SCH (07:00)
[2016-09-12] MEDS ORDERED: DILTIAZEM 125 MG/NS 100 ML IV SCH ×2 (07:00)
[2016-09-12] MEDS: RESP: ALBUTEROL 2.5 MG/IPRATROPIUM 0.5 MG NEB (SCH) INH ×3 (07:23→21:06)
[2016-09-12 07:25] LABS: HEMO FLAGS DIFF FINAL
[2016-09-12] MEDS: PANTOPRAZOLE SOD 40 MG DELAYED RELEASE TAB PO SCH (09:42)
[2016-09-12] MEDS: methylPREDNISolone SOD SUCC 40 MG/1 ML VIAL IV SCH (09:42)
[2016-09-12] MEDS: LORazepam 0.5 MG TAB PO PRN (09:42)
[2016-09-12] MEDS: METOPROLOL TARTRATE 50 MG TAB PO SCH ×2 (09:42→20:32)
[2016-09-12] MEDS: SODIUM CHLORIDE 0.9% FLUSH 5 ML FLUSH IV FLUSH SCH ×2 (09:42→20:31)
[2016-09-12] MEDS: MEMANTINE HCL 10 MG TAB PO SCH (09:42)
[2016-09-12] MEDS: ESCITALOPRAM OXALATE 10 MG TAB PO SCH (09:42)
[2016-09-12] MEDS: LOSARTAN 50 MG TAB PO SCH (09:42)
[2016-09-12] MEDS ORDERED: PILL SPLITTER OTHER PRN (11:30)
[2016-09-12] MEDS: azaTHIOprine 50 MG TAB PO SCH (11:54)
[2016-09-12] MEDS: METOCLOPRAMIDE HCL 10 MG TAB PO SCH ×2 (11:54→16:55)
[2016-09-12] MEDS: MESALAMINE HD 800 MG DELAYED RELEASE TAB PO SCH ×3 (11:54→16:54)
[2016-09-12] MEDS: FLUTICASONE 100 MCG/VILANTEROL 25 MCG INHALER INH SCH (11:55)
--- NOTE | 2016-09-12 12:42 | HHI.PR ---
Subjective Remarks Has episode of atrial fibrillation early hours of the morning,reolved with cardizem bolus, metoprolol had been held the night before. Currently resting comfortably in bed, still sounds congested, unable to do incentive spirometry. cough is very weak . Daughter at bedside encoragihg her to eat. Apparently she was up in her pediatric walker at her sons wedding a month ago. Objective Vitals Vital Signs Date Time Temp Pulse Resp B/P Pulse Ox O2 Delivery O2 Flow Rate FiO2 09/12/16 08:16 98 7 110/57 97 09/12/16 08:01 106 33 121/67 96 09/12/16 07:52 97.2 148 18 149/91 95 09/12/16 07:46 102 32 126/67 95 09/12/16 07:33 162 32 137/78 69 09/12/16 07:15 179 112/84 09/12/16 06:55 180 131/87 92 09/12/16 05:48 165 94/73 97 09/12/16 00:00 97.8 100 20 106/67 96 09/12/16 00:00 96.5 80 20 150/79 94 09/11/16 20:00 98.2 100 20 90/50 93 09/11/16 20:00 116 09/11/16 19:25 93 Nasal Cannula 2.00 09/11/16 19:00 Nasal Cannula 2.00 09/11/16 16:35 97.8 76 16 132/63 95 09/11/16 14:11 20 09/11/16 09/11/16 09/12/16 15:00 23:00 07:00 Intake Total 1049 ml 60 ml Balance 1049 ml 60 ml Intake Oral 770 ml 60 ml IV Total 279 ml 0 ml # Voids 3 3 # Bowel Movements 2 0 Result Diagram: 09/12/16 0520 09/12/16 0520 Imaging Last Impressions Chest X-Ray 09/09/161814 Signed Impressions: Service Date/Time: Friday, September 09, 2016 18:30 - CONCLUSION: 1. Basilar and dependent opacity, probably atelectasis. No significant effusion. No pneumothorax. Jerald Lozada MD Objective Remarks lying in hospital bed sounds congested , swallow is weak lung sounds diminished heart rrr not tachycardic abdomen nontender pedal edema, minimal tibial edema slight tremor A/P Problem List: (1) Bronchitis Status: Acute Plan: bronchitis with hypoxia xray atelectasis and basilar opacities cont antibiotics, duonebs, decrease soulmedrol (2) CHF (congestive heart failure) Status: Chronic Plan: on ARB inhibitor furosemide (3) Dementia Status: Chronic Plan: stable on current regimen (4) Crohns disease Status: Chronic Plan: has been stable per report (5) Anemia Status: Acute Plan: iron deficiency anemia is new since last year, has had in the past, hemmocults sent spoke to daughter, ok to transufuse if continues to drop seen by GI conservative management niferex ordered (6) Atrial fibrillation, currently in sinus rhythm Status: Acute Plan: episode of atrial fibrillation early am, resolved on metoprolol in nsr, would not be a good candidate for anticoagulation (7) Generalized weakness Status: Acute Plan: per family ambualating with walker a month ago continue PT, mobilize Problem Qualifiers (1) Anemia: Sussy Chávez MD Sep 12, 2016 12:42
[2016-09-12] MEDS: NYSTATIN SUSP 500,000 U/5 ML CUP SWISH-SWAL SCH ×3 (14:05→20:31)
[2016-09-12] MEDS: POLYSACCHARIDE IRON COMPLEX 150 MG CAP PO SCH ×2 (14:05→20:31)
[2016-09-12] MEDS: guaiFENesin/DEXTROMETHORPHAN 200 MG/20 MG/10 ML CUP PO SCH (16:54)
--- NOTE | 2016-09-12 17:57 | EKG ---
Date Performed: 09/12/2016 Time Performed: 12:59:28 PTAGE: 86 years EKG: Sinus rhythm Leftward axis Possible anterior infarct - age undetermined Possible inferior infarct - age undetermi patinece Lateral ST-T changes are nonspecific Possible leads placed wrong with V2 transition Abnormal ECG PREVIOUS TRACING : 09/12/2016 06.36 Compared to the previous tracing, now in sinus rhythm DOCTOR: Raphael Frye Interpretating Date/Time 09/12/2016 17:57:32
[2016-09-12] MEDS: cefTRIAXone INJ 1,000 MG in SODIUM CHLORIDE 0.9% INJ 100 ML IV SCH (18:25)
--- NOTE | 2016-09-12 18:40 | EKG ---
Date Performed: 09/12/2016 Time Performed: 06:36:44 PTAGE: 86 years EKG: Atrial fibrillation with uncontrolled ventricular response QRS changes V3/V4 may be due to LVH but cannot rule out anterior infarct LVH with secondary repolarization abnormality Inferior/later al ST-T changes may be due to hypertrophy and/or ischemia Abnormal ECG PREVIOUS TRACING : 11/23/2015 10.10 Compared to the previous tracing, now atrial fibrillation w ith rapid ventricular response. ST/T wave changes are new. DOCTOR: Raphael Frye Interpretating Date/Time 09/12/2016 18:38:03
[2016-09-12] MEDS: AZITHROMYCIN INJ 500 MG in SODIUM CHLOR 0.9% 250 ML INJ 250 ML IV SCH (20:31)
[2016-09-12] MEDS: DONEPEZIL HCL 5 MG TAB PO SCH (20:32)
--- NOTE | 2016-09-12 21:12 | HHI.GIFU ---
Subjective Remarks Comfortable in bed but still coughing denies any abdominal pain tolerating intake Objective Vitals I&O Vital Signs Date Time Temp Pulse Resp B/P Pulse Ox O2 Delivery O2 Flow Rate FiO2 09/12/16 17:30 Room Air 09/12/16 16:00 97.2 88 28 99/60 95 09/12/16 16:00 88 09/12/16 13:40 97 Nasal Cannula 4.00 09/12/16 12:00 97.7 60 33 103/52 98 09/12/16 12:00 64 09/12/16 11:00 62 31 103/55 98 09/12/16 10:00 98 31 126/68 96 09/12/16 09:30 102 29 140/67 96 09/12/16 09:16 102 21 122/68 96 09/12/16 09:01 104 27 130/57 96 09/12/16 08:16 98 7 110/57 97 09/12/16 08:15 101 09/12/16 08:01 106 33 121/67 96 09/12/16 08:00 167 09/12/16 08:00 Nasal Cannula 2.00 09/12/16 07:52 97.2 148 18 149/91 95 09/12/16 07:46 102 32 126/67 95 09/12/16 07:33 162 32 137/78 69 09/12/16 07:15 179 112/84 09/12/16 06:55 180 131/87 92 09/12/16 05:48 165 94/73 97 09/12/16 00:00 97.8 100 20 106/67 96 09/12/16 00:00 96.5 80 20 150/79 94 I/O 09/11/16 09/11/16 09/11/16 09/12/16 09/12/16 09/12/16 07:00 15:00 23:00 07:00 15:00 23:00 Intake Total 500 ml 1049 ml 60 ml 740 ml Balance 500 ml 1049 ml 60 ml 740 ml Intake Oral 500 ml 770 ml 60 ml 720 ml IV Total 279 ml 0 ml 20 ml # Voids 2 3 3 2 # Bowel Movements 0 2 0 1 Laboratory Laboratory Tests Test 09/12/16 05:20 White Blood Count 14.2 Red Blood Count 3.04 Hemoglobin 9.1 Hematocrit 28.4 Mean Corpuscular Volume 93.5 Mean Corpuscular Hemoglobin 29.9 Mean Corpuscular Hemoglobin 31.9 Concent Red Cell Distribution Width 17.0 Platelet Count 314 Mean Platelet Volume 6.9 Neutrophils (%) (Auto) 96.5 Lymphocytes (%) (Auto) 2.5 Monocytes (%) (Auto) 0.8 Eosinophils (%) (Auto) 0.1 Basophils (%) (Auto) 0.1 Neutrophils # (Auto) 13.7 Lymphocytes # (Auto) 0.4 Monocytes # (Auto) 0.1 Eosinophils # (Auto) 0.0 Basophils # (Auto) 0.0 CBC Comment DIFF FINAL Differential Comment Sodium Level 144 Potassium Level 4.2 Chloride Level 108 Carbon Dioxide Level 29.6 Anion Gap 6 Blood Urea Nitrogen 20 Creatinine 0.59 Estimat Glomerular Filtration 97 Rate Random Glucose 129 Calcium Level 8.4 Total Bilirubin 0.1 Aspartate Amino Transf 28 (AST/SGOT) Alanine Aminotransferase 15 (ALT/SGPT) Alkaline Phosphatase 74 Total Protein 5.9 Albumin 1.9 Date/Time Procedure Status Source Growth 09/11/16 10:20 Stool Occult Blood (JULIAN) - Final Complete Stool Stool HEMOCCULT NEGATIVE 09/11/16 09:26 Gram Stain - Final Resulted Sputum Expectorated Sputum 09/11/16 09:26 Sputum Culture - Preliminary Resulted Sputum Expectorated Sputum HEAVY GROWTH NORMAL RESPIRATORY TEVIN... 09/09/16 19:20 Aerobic Blood Culture - Preliminary Resulted Blood Peripheral NO GROWTH IN 3 DAYS 09/09/16 19:20 Anaerobic Blood Culture - Preliminary Resulted Blood Peripheral NO GROWTH IN 3 DAYS 09/09/16 18:47 Influenza Types A,B Antigen (JULIAN) - Final Complete Nasal Washing NEGATIVE FOR FLU A AND B ANTIGEN.... Imaging Last Impressions Chest X-Ray 09/11/16 0000 Signed Impressions: Service Date/Time: Sunday, September 11, 2016 10:00 - CONCLUSION: 1. Linear atelectasis now noted in the right perihilar region. Patchy bibasal opacities remain. Rito Brunner MD Physical Exam CHEST: Poor inspiration some rhonchi. CARDIAC: Regular rate and rhythm with no murmur gallop or rubs. ABDOMEN: Soft, nondistended, nontender; no hepatosplenomegaly; bowel sounds are present in all four quadrants. EXTREMITIES: No clubbing, cyanosis, or edema. SKIN: Normal; no rash; no jaundice. Assessment and Plan Plan 1. Bronchitis being addressed by attending physician 2. Crohn's disease she is currently on her Asacol and Imuran. She does have anemia and there is mention of dark stools but at this point in time there is no active bleeding hemoglobin improving continue with PPI and current supportive measures close monitoring transfusion as needed We will sign off Reconsult if any active bleeding Eliezer Low MD Sep 12, 2016 21:11
[2016-09-13] VITALS (9 sets, daily range): BP systolic 121–158; BP diastolic 70–88; PULSE 71–90; RESP 16–20; TEMP 97.6–98.4; O2SAT 92–100
[2016-09-13] MEDS: azaTHIOprine 50 MG TAB PO SCH (08:53)
[2016-09-13] MEDS: METOCLOPRAMIDE HCL 10 MG TAB PO SCH ×3 (08:53→17:23)
[2016-09-13] MEDS: LOSARTAN 50 MG TAB PO SCH (08:54)
[2016-09-13] MEDS: ESCITALOPRAM OXALATE 10 MG TAB PO SCH (08:54)
[2016-09-13] MEDS: MEMANTINE HCL 10 MG TAB PO SCH (08:54)
[2016-09-13] MEDS: guaiFENesin/DEXTROMETHORPHAN 200 MG/20 MG/10 ML CUP PO SCH (08:55)
[2016-09-13] MEDS: METOPROLOL TARTRATE 50 MG TAB PO SCH ×2 (08:55→20:28)
[2016-09-13] MEDS: PANTOPRAZOLE SOD 40 MG DELAYED RELEASE TAB PO SCH (08:55)
[2016-09-13] MEDS: methylPREDNISolone SOD SUCC 40 MG/1 ML VIAL IV SCH ×2 (08:56→09:02)
[2016-09-13] MEDS: SODIUM CHLORIDE 0.9% FLUSH 5 ML FLUSH IV FLUSH SCH ×2 (08:57→20:29)
[2016-09-13] MEDS: NYSTATIN SUSP 500,000 U/5 ML CUP SWISH-SWAL SCH ×4 (08:59→20:28)
[2016-09-13] MEDS: MESALAMINE HD 800 MG DELAYED RELEASE TAB PO SCH ×3 (09:47→17:22)
[2016-09-13] MEDS: POLYSACCHARIDE IRON COMPLEX 150 MG CAP PO SCH ×2 (09:48→20:28)
[2016-09-13] MEDS: FLUTICASONE 100 MCG/VILANTEROL 25 MCG INHALER INH SCH (09:48)
--- NOTE | 2016-09-13 11:06 | HHI.PR ---
Subjective Remarks uneventful evening. Cough is still weak, unable to do incentive spirometry of accapella Objective Vitals Vital Signs Date Time Temp Pulse Resp B/P Pulse Ox O2 Delivery O2 Flow Rate FiO2 09/13/16 10:00 Nasal Cannula 2.00 09/13/16 08:18 92 Nasal Cannula 2.00 09/13/16 08:00 98.4 71 20 158/71 94 09/13/16 04:00 97.8 73 16 145/78 100 09/13/16 00:00 97.6 80 18 142/88 99 09/12/16 21:05 94 Nasal Cannula 2.00 09/12/16 20:12 97 09/12/16 20:00 97.5 86 20 128/65 96 09/12/16 20:00 96 Nasal Cannula 2.00 09/12/16 17:30 Room Air 09/12/16 16:00 97.2 88 28 99/60 95 09/12/16 16:00 88 09/12/16 13:40 97 Nasal Cannula 4.00 09/12/16 12:00 97.7 60 33 103/52 98 09/12/16 12:00 64 09/12/16 11:00 62 31 103/55 98 09/12/16 09/12/16 09/13/16 15:00 23:00 07:00 Intake Total 740 ml 845 ml 200 ml Balance 740 ml 845 ml 200 ml Intake Oral 720 ml 420 ml 200 ml IV Total 20 ml 425 ml # Voids 2 1 2 # Bowel Movements 1 0 0 Result Diagram: 09/12/16 0520 09/12/16 0520 Imaging Last Impressions Chest X-Ray 09/09/16 1815 Signed Impressions: Service Date/Time: Friday, September 09, 2016 18:30 - CONCLUSION: 1. Basilar and dependent opacity, probably atelectasis. No significant effusion. No pneumothorax. Jerald Lozada MD Objective Remarks lying in hospital bed sounds congested , swallow is weak, thrush present on tongue lung sounds coarse, heard in throat as well heart rrr not tachycardic, not irregular abdomen nontender pedal edema, minimal tibial edema slight tremor Decubitus site clean dressing changed A/P Problem List: (1) Bronchitis Status: Acute Plan: bronchitis with hypoxia xray atelectasis and basilar opacities cont antibiotics, duonebs, her signifcant kyphosis and generalized weakness make mobilizing her secretions a challange (2) CHF (congestive heart failure) Status: Chronic Plan: on ARB inhibitor furosemide (3) Dementia Status: Chronic Plan: stable on current regimen (4) Crohns disease Status: Chronic Plan: has been stable per report on imuran and asacol (5) Anemia Status: Acute Plan: iron deficiency anemia is new since last year, has had in the past, hemmocults negative, no evidence of active bleeding spoke to daughter, ok to transufuse if continues to drop seen by GI conservative management niferex ordered (6) Atrial fibrillation, currently in sinus rhythm Status: Acute Plan: episode of atrial fibrillation early am, resolved on metoprolol in nsr, would not be a good candidate for anticoagulation heart rate controlled on monitor (7) Generalized weakness Status: Acute Plan: per family ambulating with walker a month ago continue PT, mobilize she will need rehab placement (8) Decubitus skin ulcer Status: Acute Plan: she has had a skin ulcer since admission acording to daughter has had in the past may need wound care at home Discharge Planning plan for discharge to rehab [facility]uel Problem Qualifiers (1) Anemia: Sussy Chávez MD Sep 13, 2016 11:06
[2016-09-13] MEDS: guaiFENesin E.R. 600 MG TAB PO SCH (12:34)
[2016-09-13 13:45] LABS: AUTOMATED NEUTROPHIL # 16.8 TH/MM3 (1.8-7.7); BASOPHIL % 0.1 % (0.0-2.0); HEMATOCRIT 31.3 % (35.0-46.0); LYMPH % 1.7 % (9.0-44.0); LYMPHOCYTE # 0.3 TH/MM3 (1.0-4.8); MEAN CELL VOLUME 92.2 FL (80.0-100.0); MEAN CORPUSCULAR HEMOGLOBIN 28.2 PG (27.0-34.0); MEAN CORPUSCULAR HGB CONC 30.6 % (32.0-36.0); MONO % 0.4 % (0.0-8.0); NEUT % 97.8 % (16.0-70.0); PLATELET COUNT 391 TH/MM3 (150-450); RED BLOOD COUNT 3.39 MIL/MM3 (4.00-5.30); RED CELL DISTRIBUTION WIDTH 15.7 % (11.6-17.2); WHITE BLOOD COUNT 17.2 TH/MM3 (4.0-11.0)
[2016-09-13 13:46] LABS: HEMO FLAGS DIFF FINAL
[2016-09-13] MEDS: RESP: ALBUTEROL 2.5 MG/IPRATROPIUM 0.5 MG NEB (SCH) INH ×2 (15:25→19:37)
[2016-09-13] MEDS: cefTRIAXone INJ 1,000 MG in SODIUM CHLORIDE 0.9% INJ 100 ML IV SCH (17:23)
[2016-09-13] MEDS ORDERED: NYST1000 SWISH-SWAL (19:21)
[2016-09-13] MEDS ORDERED: IPRASOL INH (19:21)
[2016-09-13] MEDS ORDERED: IPRASOL NEB (19:21)
[2016-09-13] MEDS ORDERED: CEFD300C PO (19:21)
[2016-09-13] MEDS ORDERED: ZITH250T PO (19:21)
[2016-09-13] MEDS ORDERED: NU-IRON PO (19:21)
[2016-09-13] MEDS ORDERED: METO10TA PO (19:21)
[2016-09-13] MEDS: DONEPEZIL HCL 5 MG TAB PO SCH (20:27)
[2016-09-14] VITALS: BP 151/82; PULSE 70; RESP 20; TEMP 96.1; O2SAT 99
[2016-09-14 06:38] LABS: AUTOMATED NEUTROPHIL # 13.6 TH/MM3 (1.8-7.7); EOSINOPHIL % 0.1 % (0.0-4.0); HEMATOCRIT 31.5 % (35.0-46.0); LYMPH % 3.6 % (9.0-44.0); LYMPHOCYTE # 0.5 TH/MM3 (1.0-4.8); MEAN CELL VOLUME 90.6 FL (80.0-100.0); MEAN CORPUSCULAR HEMOGLOBIN 28.8 PG (27.0-34.0); MEAN CORPUSCULAR HGB CONC 31.7 % (32.0-36.0); MONO % 3.4 % (0.0-8.0); NEUT % 92.9 % (16.0-70.0); PLATELET COUNT 364 TH/MM3 (150-450); RED BLOOD COUNT 3.48 MIL/MM3 (4.00-5.30); RED CELL DISTRIBUTION WIDTH 15.1 % (11.6-17.2); WHITE BLOOD COUNT 14.6 TH/MM3 (4.0-11.0)
[2016-09-14 06:41] LABS: HEMO FLAGS DIFF FINAL
[2016-09-14 06:58] LABS: POTASSIUM 4.7 MEQ/L (3.5-5.1)
[2016-09-14 07:01] LABS: BICARBONATE 30.6 MEQ/L (21.0-32.0)
[2016-09-14] MEDS: RESP: ALBUTEROL 2.5 MG/IPRATROPIUM 0.5 MG NEB (SCH) INH (07:27)
[2016-09-14 07:31] VITALS: O2SAT 92
[2016-09-14 08:00] VITALS: BP 154/97; PULSE 119; RESP 18; TEMP 98; O2SAT 92
[2016-09-14] MEDS: NYSTATIN SUSP 500,000 U/5 ML CUP SWISH-SWAL SCH (09:00)
[2016-09-14] MEDS ORDERED: AZITHROMYCIN 250 MG TAB PO SCH (09:00)
[2016-09-14] MEDS: ACETAMINOPHEN 325 MG TAB PO PRN (09:09)
[2016-09-14] MEDS: POLYSACCHARIDE IRON COMPLEX 150 MG CAP PO SCH (09:09)
[2016-09-14] MEDS: MESALAMINE HD 800 MG DELAYED RELEASE TAB PO SCH (09:09)
[2016-09-14] MEDS: MEMANTINE HCL 10 MG TAB PO SCH (09:09)
[2016-09-14] MEDS: METOCLOPRAMIDE HCL 10 MG TAB PO SCH (09:09)
[2016-09-14] MEDS: LOSARTAN 50 MG TAB PO SCH (09:10)
[2016-09-14] MEDS: ESCITALOPRAM OXALATE 10 MG TAB PO SCH (09:10)
[2016-09-14] MEDS: PANTOPRAZOLE SOD 40 MG DELAYED RELEASE TAB PO SCH (09:10)
[2016-09-14] MEDS: guaiFENesin E.R. 600 MG TAB PO SCH (09:11)
[2016-09-14] MEDS: azaTHIOprine 50 MG TAB PO SCH (09:11)
[2016-09-14] MEDS: METOPROLOL TARTRATE 50 MG TAB PO SCH (09:11)
[2016-09-14] MEDS: SODIUM CHLORIDE 0.9% FLUSH 5 ML FLUSH IV FLUSH SCH (09:17)
[2016-09-14] MEDS: FLUTICASONE 100 MCG/VILANTEROL 25 MCG INHALER INH SCH (09:17)
--- NOTE | 2016-09-14 10:15 | HHI.DS ---
Discharge Summary Admission Date Sep 09, 2016 at 22:18 Admitting Diagnosis bronchitis with hypoxemia (1) Bronchitis Diagnosis: Principal (2) CHF (congestive heart failure) Diagnosis: Secondary (3) Dementia Diagnosis: Secondary (4) Crohns disease Diagnosis: Secondary (5) Anemia Diagnosis: Secondary (6) Atrial fibrillation, currently in sinus rhythm Diagnosis: Secondary (7) Generalized weakness Diagnosis: Principal (8) Decubitus skin ulcer Diagnosis: Secondary Consultants GI Brief History 86 y/o white female admitted with decrease appetite ,dementia ,Crohn's disease with chronic loose stool q week,severe kyphosis history CHF with MR admitted with bronchitis hypoxia on movement weakness. CBC/BMP: 09/14/16 0538 09/14/16 0538 Significant Findings Laboratory Tests Test 09/12/16 09/13/16 09/14/16 05:20 13:35 05:38 White Blood Count 14.2 TH/MM3 17.2 TH/MM3 14.6 TH/MM3 (4.0-11.0) (4.0-11.0) (4.0-11.0) Red Blood Count 3.04 MIL/MM3 3.39 MIL/MM3 3.48 MIL/MM3 (4.00-5.30) (4.00-5.30) (4.00-5.30) Hemoglobin 9.1 GM/DL 9.6 GM/DL 10.0 GM/DL (11.6-15.3) (11.6-15.3) (11.6-15.3) Hematocrit 28.4 % 31.3 % 31.5 % (35.0-46.0) (35.0-46.0) (35.0-46.0) Mean Corpuscular Hemoglobin 31.9 % 30.6 % 31.7 % Concent (32.0-36.0) (32.0-36.0) (32.0-36.0) Mean Platelet Volume 6.9 FL 6.8 FL (7.0-11.0) (7.0-11.0) Neutrophils (%) (Auto) 96.5 % 97.8 % 92.9 % (16.0-70.0) (16.0-70.0) (16.0-70.0) Lymphocytes (%) (Auto) 2.5 % 1.7 % 3.6 % (9.0-44.0) (9.0-44.0) (9.0-44.0) Neutrophils # (Auto) 13.7 TH/MM3 16.8 TH/MM3 13.6 TH/MM3 (1.8-7.7) (1.8-7.7) (1.8-7.7) Lymphocytes # (Auto) 0.4 TH/MM3 0.3 TH/MM3 0.5 TH/MM3 (1.0-4.8) (1.0-4.8) (1.0-4.8) Chloride Level 108 MEQ/L (98-107) Blood Urea Nitrogen 20 MG/DL (7-18) Random Glucose 129 MG/DL (74-106) Calcium Level 8.4 MG/DL 8.1 MG/DL (8.5-10.1) (8.5-10.1) Total Bilirubin 0.1 MG/DL (0.2-1.0) Total Protein 5.9 GM/DL (6.4-8.2) Albumin 1.9 GM/DL (3.4-5.0) Creatinine 0.46 MG/DL (0.50-1.00) PE at Discharge lying in hospital bed sounds congested , swallow is weak, thrush present on tongue lung sounds coarse, heard in throat as well heart rrr not tachycardic, not irregular abdomen nontender pedal edema, minimal tibial edema slight tremor Decubitus site clean dressing changed Transfer Summary Patient admitted with bronchitis ,weakness ,elevated WBC count started on Rocephin and Zithromax ,nebulizer ,steroids oxygen re.glan . Patient was seen by GI for anemia chronic and her Crohn's disease and recommended continue lab follow up. Patient had episode of rapid atrial fib which was given Cardiazem bolus and resolved. Also on nystatin for thrush and has small decubiti chronic and will be followed by wound care at rehab. Patient has elevated WBC count steriods were stopped and WBC count did improve. I feel patient needs strengthening at rehab to hopefully improve her overall well being. Patient to be changed to PO antibiotics with follow up labs and chest xray at facility. Pt Condition on Discharge: Stable Discharge Disposition: Discharge to SNF Discharge Instructions DIET: Follow Instructions for: Heart Healthy Diet Activities you can perform: Shower/Bath Other Activity Instructions: patient will need assistance ambulating New Medications: Cefdinir (Cefdinir) 300 Mg Cap 300 MG PO BID Infection #14 Ref 0 CAP Azithromycin (Zithromax) 250 Mg Tab 500 MG PO DAILY bronchitis Days 3 TAB Ipratropium-Albuterol Neb (Duoneb) 0.5-2.5 Mg/3 Ml Neb 1 AMPULE INH Q6HR WHILE AWAKE NEB Shortness of Breath Days 30 ML Ipratropium-Albuterol Neb (Duoneb) 0.5-2.5 Mg/3 Ml Neb 1 AMPULE NEB Q2HR NEB PRN sob #30 ML Metoclopramide (Metoclopramide) 10 Mg Tab 5 MG PO TIDAC dysphagia #60 TAB Nystatin Liq (Nystatin Liq) 100,000 unit/ml Susp 5 ML SWISH-SWAL QID thrush Days 5 BOTTLE Polysaccharide Iron Complex (Poly-Iron 150) 150 Mg Cap 150 MG PO Q12HR anemia #30 CAP Continued Medications: Azathioprine (Imuran) 50 Mg Tab 50 MG PO DAILY Hazardous agent: use appropriate precautions for handling and disposal. Immunosuppression #30 Ref 0 TAB Cyanocobalamin Inj (Cyanocobalamin Inj) 1,000 Mcg/Ml Inj 1000 MCG SQ Q30D #1 Ref 0 VIAL Donepezil (Aricept) 5 Mg Tab 5 MG PO HS Dementia #30 Ref 0 TAB Escitalopram (Lexapro) 5 Mg Tab 5 MG PO DAILY #30 Ref 0 TAB Fluticasone-Vilanterol Inh (Breo Ellipta Inh) 100-25 Mcg/Act Inh 1 PUFF INH DAILY Use daily at the same time. #1 Ref 0 INHALER Furosemide (Lasix) 20 Mg Tab 10 MG PO HS #60 Ref 0 TAB Furosemide (Lasix) 20 Mg Tab 20 MG PO DAILY #30 Ref 0 TAB Lorazepam (Lorazepam) 0.5 Mg Tab 0.25 MG PO DAILY PRN ANXIETY Ref 0 TAB Losartan (Losartan) 100 Mg Tab 100 MG PO DAILY Blood Pressure Management #30 Ref 0 TAB Memantine (Namenda) 10 Mg Tab 10 MG PO DAILY Alzheimer Disease #[address] Ref [address] (Asacol HD) 800 Mg Tab 800 MG PO TID Swallow whole. Take on an empty stomach. Ulcerative colitis Ref 0 TAB Metoprolol Tartrate (Metoprolol Tartrate) 50 Mg Tab 50 MG PO BID #60 Ref 0 TAB Potassium Chloride ER (Potassium Chloride ER) 20 Meq Tab 20 MEQ PO EVERY OTHER DAY Electrolyte Replacement #30 Ref 0 TAB Delfin Cunningham MD Sep 14, 2016 10:15
== END 2016-09-14 11:31 | DRG 202 ==
LOC: PHED 17:41 → PHEDA 22:18 → PH3A 09-10 00:39 → PHICU 09-12 07:24 → PH3A 09-12 19:12
PROVIDERS: ADMIT Legal Medicine; ATTEND Legal Medicine
DX: J20.9 Acute bronchitis, unspecified (principal); J98.11 Atelectasis; L89.159 Pressure ulcer of sacral region, unspecified stage; L89.309 Pressure ulcer of unspecified buttock, unspecified stage; K50.90 Crohn's disease, unspecified, without complications; I50.9 Heart failure, unspecified; I48.91 Unspecified atrial fibrillation; F03.90 Unspecified dementia, unspecified severity, without behavioral disturbance, psychotic disturbance, mood disturbance, and anxiety; E53.8 Deficiency of other specified B group vitamins; R13.10 Dysphagia, unspecified; R09.02 Hypoxemia; M40.209 Unspecified kyphosis, site unspecified; M19.90 Unspecified osteoarthritis, unspecified site; M81.0 Age-related osteoporosis without current pathological fracture; H91.90 Unspecified hearing loss, unspecified ear; I10 Essential (primary) hypertension; Z85.828 Personal history of other malignant neoplasm of skin; D50.9 Iron deficiency anemia, unspecified; F41.9 Anxiety disorder, unspecified; Z88.2 Allergy status to sulfonamides; F32.9 Major depressive disorder, single episode, unspecified; R25.1 Tremor, unspecified
CPT/HCPCS: 36600; 71010; 80048; 80053; 82272; 82607; 82746; 82805; 83540; 83550; 83605; 83880; 84484; 85025; 85044; 85610; 85730; 87040; 87070; 87205; 87804; 93005; 94150; 94640; 94664; 94667; 96365; 96367; 96375; J0456; J0696; J2920; J2930; J7050; J7500